=== PATIENT | male | born 1970 | race Caucasian/White ===

== ENCOUNTER 2021-08-22 10:19 | Day surgery (SDC) | payer OTHER ==
[2021-08-21 10:32] VITALS: BMI 23.8
[~2021-08-22 10:19] MED LIST: LACTATED RINGERS 1,000 ML IV SCH; LIDOCAINE 1% (10MG/ML) FOR IV START INTRADERMA PRN
[2021-08-22 11:27] VITALS: TEMP 97.9
[2021-08-22] MEDS ORDERED: PROPOFOL 10 MG/ML 20 ML VIAL IV ONE (11:46)
--- NOTE | 2021-08-22 12:00 | P.PCN ---
Date of Procedure: 08/22/21 Procedure(s) Performed: BRIEF HISTORY: Patient is a 51-year-old pleasant white male scheduled for an elective colonoscopy as a part of screening for colorectal neoplasia. PROCEDURE PERFORMED: Colonoscopy. PREOPERATIVE DIAGNOSIS: Screening for colon cancer. IV sedation per Anesthesia. PROCEDURE: After informed consent was obtained, the patient, was brought into the endoscopy unit. IV sedation was administered by Anesthesia under continuous monitoring. Digital rectal examination was normal. Initially the Olympus CF-160 flexible video colonoscope was then inserted in the rectum, gradually advanced into the cecum without any difficulty. Careful examination was performed as the scope was gradually being withdrawn. Ileocecal valve and the appendiceal orifice were visualized and appeared normal. Prep was excellent. Mucosa of the cecum, ascending colon, transverse colon, descending colon, sigmoid colon, and rectum appeared normal. Retroflexion was performed in the rectum and no lesions were seen. The patient tolerated the procedure well. IMPRESSION: Normal-appearing colon from rectum to cecum with no evidence of colorectal neoplasia. RECOMMENDATIONS: Findings of this examination were discussed with the patient as well as his family. He was advised to have a repeat screening colonoscopy in 10 years..
[2021-08-22 12:20] VITALS: BP 106/64; PULSE 50; RESP 18
== END 2021-08-22 12:45 | disposition home or self-care (01) ==
LOC: ORWHC2ENDO 10:19
PROVIDERS: ATTEND Internal Medicine Gastroenterology
DX: Z12.11 Encounter for screening for malignant neoplasm of colon (principal); Z98.890 Other specified postprocedural states
CPT/HCPCS: J2704; G0121; 45378

== ENCOUNTER 2023-12-12 18:05 | Emergency (ER) | payer OTHER ==
[~2023-12-12 18:05] MED LIST changes: -LACTATED RINGERS 1,000 ML IV SCH; -LIDOCAINE 1% (10MG/ML) FOR IV START INTRADERMA PRN; +SODIUM CHLORIDE 0.9% 1,000 ML BAG ONE
[2023-12-12] MEDS ORDERED: HYDROmorphone 1 MG/ML 1 ML SYRINGE ONE ×2 (18:18→18:50)
[2023-12-12] MEDS ORDERED: DIPH,PERTUS(ACELL)TETVAC-LF 0.5 ML VIAL IM ONE (18:23)
[2023-12-12] MEDS ORDERED: PROPOFOL 10 MG/ML 20 ML VIAL IV ONE (18:50)
[2023-12-12] MEDS ORDERED: ACET/COD 300 MG/30 MG STARTER PACK 6 TAB BTL PO ONE (20:22)
--- NOTE | 2024-01-13 14:14 | XR ---
EXAMINATION TYPE: XR wrist limited LT DATE OF EXAM: 12/12/2023 8:27 PM CLINICAL INDICATION: Trauma, postreduction. Site ID [facility] Patient Poncho Cortés ID [id number] COMPARISON: Wrist radiograph same day. TECHNIQUE: left wrist was examined in frontal and lateral projections. FINDINGS: Postreduction changes of the distal radius fracture appreciated. There is improved alignmen t of the fracture fragments of the radius as well as of the ulna styloid. No new fractures are apprec iated. Overlying splint material does limit complete evaluation. IMPRESSION: Post reduction radiographs of the left wrist with improved alignment.
--- NOTE | 2024-01-13 14:15 | XR ---
EXAMINATION TYPE: XR wrist complete LT DATE OF EXAM: 12/12/2023 7:03 PM CLINICAL INDICATION: Pain after fall. Site ID [facility] Patient Poncho Cortés ID [id number] [id number] COMPARISON: None are available secondary to PACS downtime. TECHNIQUE: left wrist was examined in the. Frontal, navicular, lateral, and oblique. FINDINGS: Comminuted fracture of the distal radius involving the metaphysis with extension through th e epiphysis into the radiocarpal joint. There is displacement of the distal fracture fragments with a pex volar angulation of the fracture. There is slight angulation of the ulnar styloid which also likely represents associated fracture. The carpal bones appear intact. Soft tissue edema seen surrounding the distal forearm. IMPRESSION: 1. Comminuted fracture of the distal radius extending through the metaphysis and into the epiphysis/r adiocarpal with displacement. 2. Angulation of the ulnar styloid which also likely represents an associated fracture.
== END 2023-12-12 20:31 | disposition home or self-care (01) ==
LOC: EC 18:05
CPT/HCPCS: 90715; 99283